=== PATIENT | male | born 1990 | race Caucasian/White ===

== ENCOUNTER → 2020-09-15 | Outpatient (CLI) | payer OTHER ==
[~2020-09-15] MED LIST: NORCO 325 MG-51 TAB PO
== END ==
LOC: MHCPAIN 15:00
DX: M47.817 Spondylosis without myelopathy or radiculopathy, lumbosacral region (principal); M53.3 Sacrococcygeal disorders, not elsewhere classified; M54.5 Low back pain; G89.29 Other chronic pain
CPT/HCPCS: G0463

== ENCOUNTER → 2020-09-24 | Outpatient (CLI) | payer OTHER | LOC: MHCPAIN 07:53 | DX: M47.817 Spondylosis without myelopathy or radiculopathy, lumbosacral region (principal); M54.16 Radiculopathy, lumbar region | CPT/HCPCS: J1100; Q9967 ==

== ENCOUNTER → 2020-10-12 | Outpatient (CLI) | payer OTHER | LOC: MHCPAIN 09:58 | DX: M47.817 Spondylosis without myelopathy or radiculopathy, lumbosacral region (principal); M54.16 Radiculopathy, lumbar region; M53.3 Sacrococcygeal disorders, not elsewhere classified | CPT/HCPCS: G0463 ==

== ENCOUNTER 2020-10-28 23:57 | Emergency (ER) | payer OTHER | END 2020-10-29 00:30 | disposition left against medical advice (07) | LOC: COL.ER 23:57 | DX: R52 Pain, unspecified (principal) ==

== ENCOUNTER 2021-03-18 02:15 | Day surgery (SDC) | payer OTHER ==
[~2021-03-18] VITALS: Ht 175.3 cm; Wt 93.2 kg
[2021-03-18 02:50] LABS: BASO # 0.1 K/mm3 (0.0-0.2); BASO % 0.4 % (0.0-2.0); EOS # 0.3 K/mm3 (0.0-0.7); EOS % 2.1 % (0-4.0); GRAN # 9.4 K/mm3 (1.4-6.5); GRAN % 66.6 % (42.2-75.2); HEMATOCRIT 46.9 % (42.0-52.0); HEMOGLOBIN 16.4 g/dl (13.5-18.0); LYMPH # 3.3 K/mm3 (1.2-3.4); LYMPH % 23.7 % (20.0-51.0); MEAN CELL VOLUME 86 fl (80.0-100.0); MEAN CORPUSCULAR HEMOGLOBIN 30 pg (27.0-31.0); MEAN CORPUSCULAR HGB CONC 35 g/dl (33.0-37.0); MEAN PLATELET VOLUME 11.3 fl (7.4-10.4); MONO % 6.8 % (1.7-9.3); PLATELET COUNT 232 K/mm3 (130-400); RED BLOOD COUNT 5.46 M/mm3 (4.20-5.60); REDCELL DISTRIBUTION WIDTH-CV 12.5 % (11.5-14.5)
[2021-03-18 03:08] LABS: ALBUMIN 4.5 gm/dL (3.5-5.0); BILIRUBIN,TOTAL 0.5 mg/dL (0.2-1.2); C-REACTIVE PROTEIN 0.14 mg/dL (0.00-0.50); CALCIUM 9.3 mg/dL (8.4-10.2); CREATININE, serum 1.36 mg/dL (0.72-1.25); POTASSIUM 3.4 mmol/L (3.5-4.5)
[2021-03-18 10:08] VITALS: BP 104/61; PULSE 75; TEMP 98.8
[2021-03-18] MEDS ORDERED: NORCO 325 MG-51 TAB PO (11:50)
[2021-03-18 12:13] VITALS: BP 123/75; PULSE 80; TEMP 97.8
--- NOTE | 2021-03-18 12:13 | NUR ---
Patient arrived back into [facility] from PACU. Report recieved from DIRECTOR LONG TERM CARE, Ivania. Patient doing well. Minimal pain. No nausea or vomiting.
--- NOTE | 2021-03-18 12:20 | NUR ---
Patient requesting sprite and muffin. Tolerated both well with no nausea or vomiting.
[2021-03-18 12:28] VITALS: BP 106/69; PULSE 72
--- NOTE | 2021-03-18 12:28 | NUR ---
Patient vitally stable. Complaint of some discomfort. PRN motrin given per MAR. Still doing well with no vomiting or nausea.
[2021-03-18 12:43] VITALS: BP 120/76; PULSE 71
[2021-03-18 12:58] VITALS: BP 120/70; PULSE 80
--- NOTE | 2021-03-18 13:13 | NUR ---
Patient voided. Tolerated food and drink and pain is under control.
--- NOTE | 2021-03-18 13:20 | NUR ---
Patient requesting to make his own follow up appointment due to being out of town for his job. Went through discharge instructions with patient. Verbalized understanding to education and questions answered. Patient stated was on her way to pick him up. Patient escorted to emergency department entrance via ambulation. Patient left in the care of his , Sierra.
== END 2021-03-18 12:25 | disposition home or self-care (01) ==
LOC: COL.ER 02:15 → SDCO 02:15 → COL.ER 02:15 → EDSTATUS 11:15 → SDCO 12:25
PROVIDERS: Emergency Medicine
DX: K35.80 Unspecified acute appendicitis (principal)
CPT/HCPCS: J0330; J0690; J0696; J1100; J1885; J2250; J2405; J2550; J2704; J3010; J7030; J7120; Q9967